=== PATIENT | male | born 1990 | race Caucasian/White ===

== ENCOUNTER 2020-06-06 17:45 | Emergency (ER) | payer OTHER ==
[~2020-06-06] VITALS: Ht 185.4 cm; Wt 104.3 kg
[~2020-06-06 17:45] MED LIST: MOTRIN800 MG PO; PREDNICOT20 MG PO; PREDNISONE20 M1 PO; PROVENTIL HFA6.7 GM INH; TESSALON PERLE100 M1 PO; ZITHROMAX Z-PA250 MG PO
== END 2020-06-06 18:43 | disposition home or self-care (01) ==
LOC: ED 17:45
DX: S61.012A Laceration without foreign body of left thumb without damage to nail, initial encounter (principal); W26.0XXA Contact with knife, initial encounter; Y93.89 Activity, other specified; Y92.89 Other specified places as the place of occurrence of the external cause; Y99.8 Other external cause status

== ENCOUNTER 2020-10-08 08:00 | Emergency (ER) | payer OTHER ==
[~2020-10-08] VITALS: Ht 187.9 cm; Wt 125.6 kg
[2020-10-08] MEDS ORDERED: ZITHROMAX250 MG PO (09:54)
[2020-10-08] MEDS ORDERED: PREDNISONE50 MG PO (09:54)
== END 2020-10-08 10:02 | disposition home or self-care (01) ==
LOC: ED 08:00
DX: J20.9 Acute bronchitis, unspecified (principal); Z20.828 Contact with and (suspected) exposure to other viral communicable diseases; Z79.899 Other long term (current) drug therapy

== ENCOUNTER 2021-09-20 16:22 | Emergency (ER) | payer OTHER ==
[~2021-09-20 16:22] MED LIST changes: +PREDNISONE50 MG PO; +ZITHROMAX250 MG PO
[2021-09-20 16:46] LABS: BASO # 0.1 10*3/uL (0.0-0.1); BASO % 0.9 % (0.0-1.0); EOS # 0.5 10*3/uL (0.0-0.4); EOS % 6.1 % (1.0-4.0); LYMPH # 2.6 10*3/uL (1.3-4.4); MEAN CELL VOLUME 79.8 fl (80.0-94.0); MEAN CORPUSCULAR HGB 25.2 pg (27.0-31.0); MEAN CORPUSCULAR HGB CONC 31.6 g/dl (33.0-37.0); MEAN PLATELET VOLUME 9.6 fl (9.6-12.3); MONO # 0.7 10*3/uL (0.1-1.0); MONO % 8.3 % (3.0-9.0); NEUT % 51.4 % (47.0-73.0); PLATELET COUNT AUTOMATED 336 10*3/uL (130-400); RED BLOOD COUNT 5.39 10*6/uL (4.50-5.90); RED CELL DISTRI WIDTH 13.6 % (0-14.5); WHITE BLOOD COUNT 7.8 10*3/uL (4.8-10.8)
[2021-09-20 17:02] LABS: ALBUMIN 4.2 gm/dl (3.1-4.5); ALKALINE PHOSPHATASE 102 U/L (45-117); BUN 12 mg/dl (7-24); CHLORIDE 108 mmol/L (98-107); CREATININE 0.73 mg/dL (0.70-1.30); POTASSIUM 3.8 mmol/L (3.5-5.1); SGOT/AST 19 IU/L (3-35); SGPT/ALT 33 U/L (12-78); SODIUM 141 mmol/L (136-145)
[2021-09-20] MEDS ORDERED: PREDNISONE50 MG PO (17:40)
== END 2021-09-20 17:44 | disposition home or self-care (01) ==
LOC: ED 16:22
PROVIDERS: Student in an Organized Health Care Education/Training Program
DX: J40 Bronchitis, not specified as acute or chronic (principal)